=== PATIENT | female | born 1930 | race Asian ===

== ENCOUNTER 2017-10-02 07:34 | Day surgery (SDC) | payer OTHER ==
[~2017-10-02] VITALS: Ht 152.4 cm; Wt 46.4 kg
[~2017-10-02 07:34] MED LIST: ALLO100T PO; CALC25 PO; DiphenhydrAMINE HCL 50 MG/ML VIAL IVP ONE; FERR-89 PO; LEVO100 PO; METO50 PO; OMEP20 PO; SODIUM CHLORIDE 0.9% 1,000 ML IV ONE; SODIUM CHLORIDE 0.9% 1,000 ML IV SCH
[2017-10-02 08:41] LABS: HEMATOCRIT 42.8 % (36-46); HEMOGLOBIN 14.5 g/dL (12.0-16.0); MEAN CORPUSCULAR HGB CONC 33.8 G/dL (31.0-37.0); MEAN CORPUSCULAR VOLUME 101 fL (80-100); PLATELET COUNT (AUTO) 133 K/uL (150-450); RED BLOOD CELL COUNT(AUTO) 4.26 MIL/uL (4.00-5.20); RED CELL DISTRIBUTION WIDTH 13.5 % (11.5-14.5)
[2017-10-02 08:46] LABS: CALCIUM, TOTAL 7.7 mg/dL (8.8-10.5); CREATININE 1.32 mg/dL (0.60-1.30); INR 1.1 (0.9-1.1); POTASSIUM 3.6 mmol/L (3.5-5.1); PROTHROMBIN TIME 11.9 SEC (9.4-11.6)
[2017-10-02 08:51] LABS: ALBUMIN 3.2 g/dL (3.4-5.0); BILIRUBIN,TOTAL 0.8 mg/dL (0.1-1.0); TOTAL PROTEIN, SERUM 7.5 g/dL (6.4-8.2)
[2017-10-02] MEDS ORDERED: DiphenhydrAMINE HCL 50 MG/ML VIAL ONE (09:05)
[2017-10-02] MEDS ORDERED: BENZOCAINE 20% 50 MCG/SPRAY 57 GM ONE (09:16)
[2017-10-02] MEDS ORDERED: FentaNYL CITRATE-PF 100 MCG/2 ML VIAL ONE (09:49)
[2017-10-02] MEDS ORDERED: MIDAZOLAM HCL 2 MG/2 ML VIAL ONE (09:49)
[2017-10-02 09:50] VITALS: BP 157/74
[2017-10-02] MEDS ORDERED: MIDAZOLAM HCL 2 MG/2 ML VIAL IVP ONE (10:15)
[2017-10-02] MEDS ORDERED: BENZOCAINE 20% 50 MCG/SPRAY 57 GM TP ONE (10:15)
[2017-10-02] MEDS ORDERED: FentaNYL CITRATE-PF 100 MCG/2 ML VIAL IVP ONE (10:15)
[2017-10-02 10:20] VITALS: BP 165/62
[2017-10-02 10:24] LABS: EOSINOPHILS % (MANUAL) 1 % (1-6); LYMPHOCYTES % (MANUAL) 41 % (22-44); TOTAL CELLS COUNTED 100
[2017-10-02 10:25] LABS: RBC MORPHOLOGY COMMENT ABNORMAL R
== END 2017-10-02 12:30 | disposition home or self-care (01) ==
LOC: CATHLAB 07:34
PROVIDERS: ATTEND Internal Medicine Interventional Cardiology
DX: I48.91 Unspecified atrial fibrillation (principal); I34.0 Nonrheumatic mitral (valve) insufficiency; E03.9 Hypothyroidism, unspecified; K21.9 Gastro-esophageal reflux disease without esophagitis; M10.9 Gout, unspecified; M47.899 Other spondylosis, site unspecified; I10 Essential (primary) hypertension; Z98.890 Other specified postprocedural states; Z90.49 Acquired absence of other specified parts of digestive tract; Z98.42 Cataract extraction status, left eye; Z98.41 Cataract extraction status, right eye; Z95.0 Presence of cardiac pacemaker
CPT/HCPCS: 36415; 71010; 80053; 85007; 85027; 85610; 85730; 93005; 93312; J1200; J2250; J3010; J7030; 99152